=== PATIENT | female | born 1990 | race Two or more races ===

== ENCOUNTER 2016-11-03 07:30 | Inpatient (IN) | payer OTHER, MEDICAID ==
[~2016-11-03] VITALS: Ht 157.5 cm; Wt 81.8 kg
[2016-11-03 07:46] VITALS: BP 93/51
[2016-11-03] MEDS ORDERED: ALUMINUM/MAG/SIMETHICONE 30 ML UDC ONE (07:54)
[2016-11-03] MEDS ORDERED: ALUMINUM/MAG/SIMETHICONE 30 ML UDC PO PRN (08:00)
[2016-11-03 08:30] LABS: ASPARTATE AMINO TRANSFERASE 76 U/L (15-37); BLOOD UREA NITROGEN 7 mg/dL (7-18)
[2016-11-03] MEDS ORDERED: LACTATED RINGERS 1,000 ML IV SCH (08:30)
[2016-11-03] MEDS ORDERED: FAMOTIDINE 20 MG/2 ML IVPush ONE (08:30)
[2016-11-03] MEDS ORDERED: FAMOTIDINE 20 MG/2 ML ONE (08:35)
[2016-11-03] MEDS ORDERED: PROMETHAZINE 25 MG/ML, 1ML IM ONE (09:30)
[2016-11-03] MEDS ORDERED: LACTATED RINGERS 1,000 ML IVBOLUS ONE (09:30)
[2016-11-03] MEDS ORDERED: MEPERIDINE/PF 100 MG/ML IM PRN (09:30)
[2016-11-03] MEDS ORDERED: PROMETHAZINE 25 MG/ML, 1ML ONE (09:34)
[2016-11-03] MEDS ORDERED: MEPERIDINE/PF 100 MG/ML ONE (09:34)
[2016-11-03] MEDS ORDERED: PROMETHAZINE 25 MG/ML, 1ML IM PRN (13:30)
[2016-11-03] MEDS ORDERED: D5%-LACTATED RINGERS 1,000 ML IV SCH (13:30)
[2016-11-04] MEDS ORDERED: MEPE100T14 PO (08:29)
[2016-11-04] MEDS ORDERED: PROM25SU34 RC (08:30)
== END 2016-11-03 18:22 | disposition home or self-care (01) | DRG 781 ==
LOC: LDOP 07:30 → LDIP 09:48 → OBSVTOIN 13:20 → LDIP 14:05
PROVIDERS: ADMIT Obstetrics & Gynecology; ATTEND Obstetrics & Gynecology
DX: O99.613 Diseases of the digestive system complicating pregnancy, third trimester (principal); K81.0 Acute cholecystitis; O34.219 Maternal care for unspecified type scar from previous cesarean delivery; Z3A.35 35 weeks gestation of pregnancy; Z88.0 Allergy status to penicillin
CPT/HCPCS: 36415; 76705; 80053; 81001; 82150; 83690; 84550; 85025; 86850; 86900; 87081; 87086; G0378; J2175; J7120; J7121; S0028

== ENCOUNTER 2016-11-03 20:56 | Observation (INO) | payer OTHER, MEDICAID ==
[~2016-11-03] VITALS: Ht 162.6 cm; Wt 85.0 kg
[2016-11-03] MEDS ORDERED: MEPERIDINE/PF 100 MG/ML ONE (21:22)
[2016-11-03] MEDS ORDERED: PROMETHAZINE 25 MG/ML, 1ML ONE (21:22)
[2016-11-03] MEDS ORDERED: ONDANSETRON 2MG/ML, 2ML IVPush PRN (21:30)
[2016-11-03] MEDS ORDERED: MAALOX/HYOSCYAMINE/LIDOCAINE 45 ML BOTTLE PO PRN (21:30)
[2016-11-03] MEDS ORDERED: MEPERIDINE/PF 100 MG/ML IM PRN (21:30)
[2016-11-03] MEDS ORDERED: PROMETHAZINE 25 MG/ML, 1ML IM PRN (21:30)
[2016-11-03] MEDS: D5%-LACTATED RINGERS 1,000 ML IV SCH (21:35)
[2016-11-04] MEDS: D5%-LACTATED RINGERS 1,000 ML IV SCH (04:47)
[2016-11-04] MEDS ORDERED: MEPE100T14 PO (08:29)
[2016-11-04] MEDS ORDERED: PROM25SU34 RC (08:30)
== END 2016-11-04 09:30 | disposition home or self-care (01) ==
LOC: LDOP 20:56 → LDIP 21:25
PROVIDERS: ADMIT Obstetrics & Gynecology; ATTEND Obstetrics & Gynecology
DX: O62.9 Abnormality of forces of labor, unspecified (principal); O26.893 Other specified pregnancy related conditions, third trimester; R10.10 Upper abdominal pain, unspecified; Z3A.35 35 weeks gestation of pregnancy
CPT/HCPCS: 59025; 96360; 96361; 96372; G0378; J2175; J2550; J7121

== ENCOUNTER 2016-11-12 19:36 | Outpatient (CLI) | payer OTHER, MEDICAID ==
[~2016-11-12] VITALS: Ht 162.6 cm; Wt 80.0 kg
[~2016-11-12 19:36] MED LIST: MEPE100T14 PO; PROM25SU34 RC
[2016-11-12] MEDS ORDERED: MEPERIDINE/PF 100 MG/ML ONE (19:41)
[2016-11-12] MEDS ORDERED: PROMETHAZINE 25 MG/ML, 1ML ONE (19:41)
[2016-11-12 19:47] VITALS: BP 99/55
[2016-11-12] MEDS ORDERED: PROMETHAZINE 25 MG/ML, 1ML IM ONE (20:00)
[2016-11-12] MEDS ORDERED: MEPERIDINE/PF 100 MG/ML IM PRN (20:00)
== END 2016-11-12 20:00 | disposition home or self-care (01) ==
LOC: LDOP 19:36
PROVIDERS: ATTEND Obstetrics & Gynecology
DX: O26.893 Other specified pregnancy related conditions, third trimester (principal); K80.20 Calculus of gallbladder without cholecystitis without obstruction; Z3A.37 37 weeks gestation of pregnancy
CPT/HCPCS: 59025; 99211; J2175; J2550; G0463

== ENCOUNTER 2016-11-30 13:42 | Inpatient (IN) | payer OTHER, MEDICAID ==
[~2016-11-30] VITALS: Ht 162.6 cm; Wt 79.0 kg
[2016-11-30] MEDS: LACTATED RINGERS 1,000 ML IV SCH ×6 (16:50→23:30)
[2016-11-30] MEDS ORDERED: LACTATED RINGERS 1,000 ML IVBOLUS ONE ×2 (17:00→18:00)
[2016-11-30 17:25] VITALS: BP 107/58
[2016-11-30] MEDS ORDERED: LACTATED RINGERS 1,000 ML IV SCH (17:41)
[2016-11-30] MEDS ORDERED: OXYTOCIN 30U/ 0.9% NaCL 500ML 500 ML IV SCH (17:41)
[2016-11-30] MEDS ORDERED: METOCLOPRAMIDE 5 MG/ML, 2ML IV ONE (18:00)
[2016-11-30] MEDS ORDERED: SODIUM CITRATE/CITRIC ACID 30 ML UDC PO ONE (18:00)
[2016-11-30] MEDS ORDERED: NEWBORN KIT ONE (18:04)
[2016-11-30] MEDS ORDERED: OXYTOCIN 30U/ 0.9% NaCL 500ML 500 ML ONE (18:04)
[2016-11-30] MEDS ORDERED: METOCLOPRAMIDE 5 MG/ML, 2ML ONE (18:15)
[2016-11-30] MEDS ORDERED: SODIUM CITRATE/CITRIC ACID 30 ML UDC ONE (18:15)
[2016-11-30] MEDS ORDERED: FENTANYL PF 100 MCG/2ML ONE (18:52)
[2016-11-30] MEDS ORDERED: KETOROLAC 30 MG/1 ML ONE (19:59)
[2016-11-30] MEDS ORDERED: CEFAZOLIN 1,000 MG ONE (19:59)
[2016-11-30] MEDS ORDERED: EPHEDRINE 50 MG/ML, 1ML ONE (19:59)
[2016-11-30] MEDS ORDERED: ONDANSETRON 2MG/ML, 2ML ONE (19:59)
[2016-11-30] MEDS ORDERED: OXYTOCIN 10 UNITS/ML, 1ML ONE (19:59)
[2016-11-30] MEDS: OXYTOCIN 30U/ 0.9% NaCL 500ML 500 ML IV SCH (21:16)
[2016-11-30] MEDS ORDERED: FENTANYL PF 100 MCG/2ML IV PRN (21:30)
[2016-11-30] MEDS ORDERED: MISOPROSTOL 200 MCG TABLET PR PRN (21:30)
[2016-11-30] MEDS ORDERED: ACETAMINOPHEN 325 MG TABLET PO PRN ×2 (21:30)
[2016-11-30] MEDS ORDERED: morphine SULFATE 10 MG/ML, 1ML IV PRN (21:30)
[2016-11-30] MEDS ORDERED: ONDANSETRON 2MG/ML, 2ML IV PRN (21:30)
[2016-11-30] MEDS ORDERED: METOCLOPRAMIDE 5 MG/ML, 2ML IV PRN (21:30)
[2016-11-30] MEDS ORDERED: OXYcodone 5 MG/5 ML ORAL.SOL UDC PO PRN (21:30)
[2016-11-30] MEDS ORDERED: ONDANSETRON 2MG/ML, 2ML IVPush PRN (21:30)
[2016-11-30] MEDS ORDERED: MEPERIDINE/PF 25MG/0.5ML IVPush PRN (21:30)
[2016-11-30] MEDS ORDERED: morphine SULFATE 10 MG/ML, 1ML IVPush PRN (21:30)
[2016-11-30] MEDS ORDERED: CALCIUM CARBONATE 500 MG TAB.CHEW PO PRN (21:30)
[2016-11-30] MEDS: OXYcodone/APAP 5/325MG TABLET PO PRN (23:19)
[2016-11-30 23:26] VITALS: BP 106/50
[2016-12-01] MEDS: OXYcodone/APAP 5/325MG TABLET PO PRN ×4 (00:22→21:39)
[2016-12-01] MEDS: LACTATED RINGERS 1,000 ML IV SCH ×4 (01:30→07:16)
[2016-12-01 01:35] VITALS: BP 92/53
[2016-12-01] MEDS: KETOROLAC 30 MG/1 ML IV PRN ×3 (03:54→16:10)
[2016-12-01 04:32] VITALS: BP 105/48
[2016-12-01] MEDS: OXYTOCIN 30U/ 0.9% NaCL 500ML 500 ML IV SCH (07:16)
[2016-12-01 08:49] VITALS: BP 99/54
[2016-12-01] MEDS: PRENATAL VIT/IRON/FA 1 EACH TABLET PO SCH (09:00)
[2016-12-01 15:30] VITALS: BP 108/62
[2016-12-01 20:10] VITALS: BP 103/63
[2016-12-01] MEDS: DOCUSATE 100 MG CAPSULE PO PRN (21:39)
[2016-12-02] MEDS: OXYcodone/APAP 5/325MG TABLET PO PRN ×5 (02:46→21:29)
[2016-12-02 08:30] VITALS: BP 99/64
[2016-12-02] MEDS: DOCUSATE 100 MG CAPSULE PO PRN ×2 (08:55→21:29)
[2016-12-02] MEDS: PRENATAL VIT/IRON/FA 1 EACH TABLET PO SCH (08:55)
[2016-12-02] MEDS: DIPHENHYDRAMINE 25 MG CAPSULE PO PRN (10:20)
[2016-12-02] MEDS: FERROUS GLUCONATE 324 MG TABLET PO SCH ×2 (12:31→16:58)
[2016-12-02] MEDS: IBUPROFEN 600 MG TABLET PO PRN (16:58)
[2016-12-02] MEDS ORDERED: LACTATED RINGERS 1,000 ML IV SCH (18:00)
[2016-12-02 19:20] VITALS: BP 94/58
[2016-12-03] MEDS: IBUPROFEN 600 MG TABLET PO PRN ×4 (01:35→20:04)
[2016-12-03] MEDS: OXYcodone/APAP 5/325MG TABLET PO PRN ×4 (01:35→20:04)
[2016-12-03] MEDS: DOCUSATE 100 MG CAPSULE PO PRN ×2 (07:42→20:04)
[2016-12-03] MEDS: FERROUS GLUCONATE 324 MG TABLET PO SCH ×3 (07:42→17:46)
[2016-12-03] MEDS: PRENATAL VIT/IRON/FA 1 EACH TABLET PO SCH (07:43)
[2016-12-03] MEDS: DIPHENHYDRAMINE 25 MG CAPSULE PO PRN (07:54)
[2016-12-03 08:10] VITALS: BP 93/54
[2016-12-03] MEDS ORDERED: DIPHENHYDRAMINE 25 MG CAPSULE PO PRN (16:58)
[2016-12-03] MEDS: CLINDAMYCIN 300 MG CAPSULE PO SCH ×2 (17:46→23:53)
[2016-12-03 19:40] VITALS: BP 101/63
[2016-12-04] MEDS: IBUPROFEN 600 MG TABLET PO PRN ×2 (05:46→12:16)
[2016-12-04] MEDS: OXYcodone/APAP 5/325MG TABLET PO PRN ×2 (05:46→11:02)
[2016-12-04] MEDS: CLINDAMYCIN 300 MG CAPSULE PO SCH ×2 (05:46→12:16)
[2016-12-04 08:00] VITALS: BP 97/60
[2016-12-04] MEDS: PRENATAL VIT/IRON/FA 1 EACH TABLET PO SCH (09:04)
[2016-12-04] MEDS: DOCUSATE 100 MG CAPSULE PO PRN (09:04)
[2016-12-04] MEDS: FERROUS GLUCONATE 324 MG TABLET PO SCH ×2 (09:04→12:16)
[2016-12-04] MEDS ORDERED: NEOSPORIN OINT. PKT 1 PACKET TP SCH (09:30)
[2016-12-04] MEDS ORDERED: IBUP-1222 PO (12:02)
[2016-12-04] MEDS ORDERED: DOCU-30 PO (12:03)
[2016-12-04] MEDS ORDERED: OXYC-302 PO (12:03)
[2016-12-04] MEDS ORDERED: CLIN300C93 PO (12:04)
[2016-12-04] MEDS ORDERED: FERR325T10 PO (12:04)
== END 2016-12-04 15:00 | disposition home or self-care (01) | DRG 765 ==
LOC: LDOP 13:42 → LDIP 17:10 → OBSVTOIN 17:41 → 2NW 23:17
PROVIDERS: ADMIT Obstetrics & Gynecology; ATTEND Obstetrics & Gynecology
PROC: 10D00Z1 Extraction of Products of Conception, Low, Open Approach (ICD-10-PCS; principal; 2016-11-30)
PROC: 0UB70ZZ Excision of Bilateral Fallopian Tubes, Open Approach (ICD-10-PCS; 2016-11-30)
PROC: 0WQFXZZ Repair Abdominal Wall, External Approach (ICD-10-PCS; 2016-12-02)
DX: O34.211 Maternal care for low transverse scar from previous cesarean delivery (principal); O99.354 Diseases of the nervous system complicating childbirth; G43.909 Migraine, unspecified, not intractable, without status migrainosus; D50.0 Iron deficiency anemia secondary to blood loss (chronic); O99.03 Anemia complicating the puerperium; O90.0 Disruption of cesarean delivery wound; K21.9 Gastro-esophageal reflux disease without esophagitis; O99.62 Diseases of the digestive system complicating childbirth; K81.9 Cholecystitis, unspecified; Z37.0 Single live birth; Z3A.39 39 weeks gestation of pregnancy; Z88.0 Allergy status to penicillin; Z79.899 Other long term (current) drug therapy; Z30.2 Encounter for sterilization; Z88.8 Allergy status to other drugs, medicaments and biological substances
CPT/HCPCS: 36415; 85025; 86850; 86900; 88302; 89060; J0690; J1885; J2405; J3010; G0378; J2270; J2590; J2765; J7120; Q0114; Q0163

== ENCOUNTER 2016-12-17 01:57 | Emergency (ER) | payer MEDICAID, OTHER ==
[~2016-12-17] VITALS: Ht 152.4 cm; Wt 72.6 kg
[~2016-12-17 01:57] MED LIST changes: +CLIN300C93 PO; +DOCU-30 PO; +FERR325T10 PO; +IBUP-1222 PO; +OXYC-302 PO
[2016-12-17] MEDS ORDERED: ONDANSETRON 2MG/ML, 2ML IVPush ONE (02:30)
[2016-12-17] MEDS ORDERED: SODIUM CHLORIDE FLUSH 10ML SYR IVF ONE (02:30)
[2016-12-17] MEDS ORDERED: SODIUM CHLORIDE 0.9% 1,000ML IVBOLUS ONE (02:30)
[2016-12-17] MEDS ORDERED: HYDROmorphone 1 MG/ML, 1ML ONE ×2 (02:31→03:07)
[2016-12-17] MEDS ORDERED: ONDANSETRON 2MG/ML, 2ML ONE (02:31)
[2016-12-17] MEDS: HYDROmorphone 1 MG/ML, 1ML IVPush PRN ×2 (02:41→03:23)
[2016-12-17 02:44] LABS: HEMATOCRIT 39.3 % (34.6-47.8); HEMOGLOBIN 12.8 g/dL (11.7-16.4); WHITE BLOOD COUNT 7.6 x10^3/uL (3.4-10)
[2016-12-17 02:50] LABS: ASPARTATE AMINO TRANSFERASE 44 U/L (15-37); BLOOD UREA NITROGEN 14 mg/dL (7-18)
[2016-12-17] MEDS ORDERED: HYDROmorphone 1 MG/ML, 1ML IM ONE (03:30)
[2016-12-17] MEDS ORDERED: HYDROmorphone 1 MG/ML, 1ML IV ONE (03:30)
[2016-12-17 03:41] VITALS: BP 113/60
== END 2016-12-17 05:06 | disposition home or self-care (01) ==
LOC: ED 02:19
DX: K80.70 Calculus of gallbladder and bile duct without cholecystitis without obstruction (principal); K80.20 Calculus of gallbladder without cholecystitis without obstruction
CPT/HCPCS: 36415; 76700; 80053; 83690; 85025; 93005; 96361; 96374; 96375; 96376; 99285; J1170; J2405; J7030

== ENCOUNTER 2016-12-22 01:22 | Observation (INO) | payer MEDICAID ==
[~2016-12-22] VITALS: Ht 154.9 cm; Wt 71.2 kg
[~2016-12-22 01:22] MED LIST changes: +CLIN300C8 PO; -CLIN300C93 PO; +DOCU-131 PO; -DOCU-30 PO; +FERR-36 PO; -FERR325T10 PO
[2016-12-22] MEDS ORDERED: ONDANSETRON 2MG/ML, 2ML IVPush ONE (02:00)
[2016-12-22] MEDS ORDERED: MORPHINE SULFATE 4 MG/ML, 1ML IVPush PRN (02:00)
[2016-12-22] MEDS ORDERED: SODIUM CHLORIDE 0.9% 1,000ML IVBOLUS ONE (02:00)
[2016-12-22] MEDS ORDERED: SODIUM CHLORIDE FLUSH 10ML SYR IVF ONE (02:00)
[2016-12-22] MEDS ORDERED: ONDA4TAB10 PO (02:19)
[2016-12-22 02:21] LABS: HEMATOCRIT 39.4 % (34.6-47.8); HEMOGLOBIN 12.8 g/dL (11.7-16.4); WHITE BLOOD COUNT 6.9 x10^3/uL (3.4-10)
[2016-12-22] MEDS ORDERED: MORPHINE SULFATE 4 MG/ML, 1ML ONE (02:22)
[2016-12-22] MEDS ORDERED: ONDANSETRON 2MG/ML, 2ML ONE ×2 (02:22→09:45)
[2016-12-22 02:34] LABS: ASPARTATE AMINO TRANSFERASE 149 U/L (15-37); BLOOD UREA NITROGEN 16 mg/dL (7-18)
[2016-12-22] MEDS ORDERED: SODIUM CHLORIDE 0.9% 1,000 ML IV ONE (03:40)
[2016-12-22] MEDS ORDERED: SODIUM CHLORIDE FLUSH 10ML SYR IVF PRN (04:00)
[2016-12-22] MEDS ORDERED: ONDANSETRON 2MG/ML, 2ML IVPush PRN ×2 (04:00→10:30)
[2016-12-22] MEDS ORDERED: HYDROmorphone 1 MG/ML, 1ML IVPush PRN (04:00)
[2016-12-22] MEDS ORDERED: CEFOTETAN PMX 1GM/50ML 50 ML IV ONE (04:00)
[2016-12-22] MEDS ORDERED: PROMETHAZINE 25 MG/ML, 1ML IM PRN (04:00)
[2016-12-22 04:10] VITALS: BP 109/65
[2016-12-22] MEDS ORDERED: EPINEPHRINE 1 MG/ML, 1ML ONE (07:12)
[2016-12-22] MEDS ORDERED: BUPIVACAINE/PF 0.5% ONE (07:12)
[2016-12-22 08:22] VITALS: BP 112/68
[2016-12-22] MEDS ORDERED: FENTANYL PF 100 MCG/2ML ONE ×2 (09:34)
[2016-12-22] MEDS ORDERED: MIDAZOLAM 1 MG/ML, 2ML ONE (09:35)
[2016-12-22] MEDS ORDERED: ROCURONIUM 10 MG/ML ONE (09:45)
[2016-12-22] MEDS ORDERED: CEFOTETAN 2 GM ONE (09:45)
[2016-12-22] MEDS ORDERED: DEXAMETHASONE 4 MG/ML, 1ML ONE (09:45)
[2016-12-22] MEDS ORDERED: METOCLOPRAMIDE 5 MG/ML, 2ML ONE (09:45)
[2016-12-22] MEDS ORDERED: GLYCOPYRROLATE 0.2MG/1ML ONE (09:45)
[2016-12-22] MEDS ORDERED: KETOROLAC 30 MG/1 ML ONE (09:45)
[2016-12-22] MEDS ORDERED: PROPOFOL 10 MG/ML, 20ML ONE (09:45)
[2016-12-22] MEDS ORDERED: NEOSTIGMINE 1 MG/ML, 10ML ONE (09:45)
[2016-12-22] MEDS ORDERED: SUCCINYLCHOLINE 20 MG/ML, 10ML ONE (09:45)
[2016-12-22] MEDS ORDERED: MIDAZOLAM 1 MG/ML, 2ML IV PRN (10:30)
[2016-12-22] MEDS ORDERED: FENTANYL PF 100 MCG/2ML IV PRN (10:30)
[2016-12-22] MEDS ORDERED: MEPERIDINE/PF 25MG/0.5ML IVPush PRN (10:30)
[2016-12-22] MEDS ORDERED: HYDROmorphone 1 MG/ML, 1ML IV PRN (10:30)
[2016-12-22] MEDS ORDERED: PROMETHAZINE 25 MG/ML, 1ML IV PRN (10:30)
[2016-12-22] MEDS ORDERED: LABETALOL 5MG/ML, 20ML IV PRN (10:30)
[2016-12-22] MEDS ORDERED: hydrALAzine 20 MG/ML, 1ML IV PRN (10:30)
[2016-12-22] MEDS ORDERED: EPHEDRINE 50 MG/ML, 1ML IVPush PRN (10:30)
[2016-12-22] MEDS ORDERED: OXYcodone 5 MG/5 ML ORAL.SOL UDC PO PRN (10:30)
[2016-12-22] MEDS ORDERED: ALBUTEROL/IPRATROPIUM 2.5MG/0.5MG, 3 ML NPPB PRN (10:30)
[2016-12-22] MEDS ORDERED: MEPERIDINE/PF 50 MG/ML ONE (10:53)
[2016-12-22] MEDS ORDERED: OXYcodone 5 MG/5 ML ORAL.SOL UDC ONE (11:28)
[2016-12-22] MEDS ORDERED: morphine SULFATE 10 MG/ML, 1ML IVPush PRN (12:15)
[2016-12-22] MEDS ORDERED: D5%-0.45NACL+KCL 20MEQ 1,000 ML IV SCH (13:30)
[2016-12-22] MEDS ORDERED: ONDANSETRON 2MG/ML, 2ML IV PRN (13:30)
[2016-12-22] MEDS ORDERED: MORPHINE SULFATE 4 MG/ML, 1ML IV PRN (13:30)
[2016-12-22] MEDS ORDERED: OXYcodone/APAP 5/325MG TABLET PO PRN (13:30)
[2016-12-22 14:22] VITALS: BP 117/77
[2016-12-22] MEDS ORDERED: SODIUM CHLORIDE FLUSH 10ML SYR IVF SCH (21:00)
== END 2016-12-22 16:41 | disposition home or self-care (01) ==
LOC: ED 02:35 → EDIP 03:40 → INTOOBSV 03:40 → 4NOR 04:03
PROVIDERS: ADMIT Surgery; ATTEND Surgery
DX: K80.12 Calculus of gallbladder with acute and chronic cholecystitis without obstruction (principal)
CPT/HCPCS: 36415; 47562; 76700; 80053; 81001; 83690; 84703; 85025; 87086; 88304; 96365; 96375; 96376; 99285; G0378; J0171; J0330; J1100; J1885; J2175; J2250; J2270; J2405; J2704; J2710; J2765; J3010; J3490; J7030; S0074

== ENCOUNTER 2016-12-28 16:15 | Emergency (ER) | payer MEDICAID ==
[~2016-12-28] VITALS: Ht 162.6 cm; Wt 69.0 kg
[~2016-12-28 16:15] MED LIST changes: +ONDA4TAB10 PO
[2016-12-28] MEDS ORDERED: SODIUM CHLORIDE 0.9% 1,000 ML IV ONE (16:45)
[2016-12-28 16:54] LABS: HEMATOCRIT 40.9 % (34.6-47.8); HEMOGLOBIN 13.3 g/dL (11.7-16.4); WHITE BLOOD COUNT 7.8 x10^3/uL (3.4-10)
[2016-12-28] MEDS ORDERED: SODIUM CHLORIDE 0.9% 1,000ML IVBOLUS ONE (17:00)
[2016-12-28] MEDS ORDERED: ONDANSETRON 2MG/ML, 2ML IVPush ONE (17:00)
[2016-12-28] MEDS ORDERED: HYDROmorphone 1 MG/ML, 1ML IVPush PRN (17:00)
[2016-12-28] MEDS ORDERED: SODIUM CHLORIDE FLUSH 10ML SYR IVF ONE (17:00)
[2016-12-28] MEDS ORDERED: HYDROmorphone 1 MG/ML, 1ML ONE (17:02)
[2016-12-28] MEDS ORDERED: ONDANSETRON 2MG/ML, 2ML ONE (17:02)
[2016-12-28 17:10] LABS: ASPARTATE AMINO TRANSFERASE 131 U/L (15-37); BLOOD UREA NITROGEN 14 mg/dL (7-18)
[2016-12-28] MEDS ORDERED: OMNIPAQUE 350 MG/ML, 100ML BOTTLE ONE (18:04)
[2016-12-28 18:57] VITALS: BP 116/74
== END 2016-12-28 18:59 | disposition home or self-care (01) ==
LOC: ED 16:34
DX: R10.13 Epigastric pain (principal); Z90.49 Acquired absence of other specified parts of digestive tract
CPT/HCPCS: 36415; 74020; 74177; 80053; 83605; 83690; 84703; 85025; 96361; 96374; 96375; 99285; J1170; J2405; J7030; Q9967